=== PATIENT | female | born 1955 | race Caucasian/White ===

== ENCOUNTER 2020-05-20 19:10 | Emergency (ER) | payer OTHER, SELFPAY ==
[2020-05-20 19:18] VITALS: BP 179/77; PULSE 85; RESP 20; TEMP 37.6; O2SAT 97
--- NOTE | 2020-05-20 19:30 | ED.GENADULT ---
HPI - General Adult General Chief complaint: Dental/Oral Stated complaint: Tooth Pain Time Seen by Provider: 05/20/20 19:24 Source: patient and RN notes reviewed Mode of arrival: ambulatory Limitations: no limitations History of Present Illness HPI narrative: Patient presents today with left lower tooth pain and gum swelling since last night. States she lost a filling in this tooth several months ago and has not had it taken care of. She does have a dentist and is working to get several teeth extracted as she cannot afford them. Denies fever, shortness of breath, difficulty swallowing. She has been taking Tylenol with some relief. MD complaint: Tooth Related Data Home Medications Medication Instructions Recorded Confirmed atorvastatin 10 mg PO DAILY 05/20/20 05/20/20 carvedilol 6.25 mg PO BID 05/20/20 05/20/20 ipratropium bromide 2 spray INTRANASAL BID 05/20/20 05/20/20 levothyroxine 112 mcg PO DAILY 05/20/20 05/20/20 lisinopril 10 mg PO DAILY 05/20/20 05/20/20 rivaroxaban [Xarelto] 20 mg PO DAILY 05/20/20 05/20/20 triamcinolone acetonide 1 applic TOPICAL BID 05/20/20 05/20/20 Allergies Allergy/AdvReac Type Severity Reaction Status Date / Time No Known Allergies Allergy Verified 05/20/20 19:27 Review of Systems Review of Systems: Narrative: CONSTITUTIONAL: Denies body aches, fever, chills, or sweats. EYES: Denies visual changes, redness, or discharge. ENT: Denies rhinorrhea, congestion, sore throat, or otalgia.+ Tooth pain CARDIOVASCULAR: Denies chest pain, palpitations, or edema. RESPIRATORY: Denies cough or dyspnea. GASTROINTESTINAL: Denies abdominal pain, nausea, vomiting, or diarrhea. GENITOURINARY: Denies dysuria or hematuria. SKIN: Denies rash, itching, or wounds. MUSCULOSKELETAL: Denies back pain, joint pain, or myalgia. NEUROLOGIC: Denies headache, numbness, tingling, or weakness. PSYCH: Denies depression or anxiety. [facility] Past Medical History Medical History (Updated 05/20/20 @ 19:35 by Neha Madrigal, [employer], BC) A-fib Graves disease Hyperlipidemia Hypertension Hypothyroidism Social History Social History Alcohol intake: current Comments At time of signature, I have reviewed and agree with nursing past medical, surgical, social and family history unless otherwise noted. Please see nursing chart for further information. There is no relevant family history pertinent to the presenting complaint Exam Narrative: Exam Narrative: GENERAL: Well-appearing, well-nourished, and in no acute distress. HEAD: Normocephalic, atraumatic. EYES: EOMI. No redness or drainage. Conjunctivae normal. ENT: Mucous membranes pink and moist. Gross dental decay. Lateral half of tooth #19 is missing. Rest of the tooth is brown/black in color. Mild swelling of the left lower jawline. No obvious periapical abscess noted. Tooth #20 is dark in color as well. Throat normal. Uvula midline. NECK: Normal AROM. Supple. No lymphadenopathy. CHEST: No respiratory distress. EXTREMITIES: Normal range of motion. No edema. SKIN: Warm, dry, no rash. Capillary refill normal. Normal skin turgor. NEURO: No focal deficits. Alert and oriented x3. Gait steady. PSYCH: Normal affect. No signs of depression or anxiety. Course Vital Signs Vital signs: Vital Signs Temperature 99.7 F H 05/20/20 19:18 Pulse Rate 85 05/20/20 19:18 Respiratory Rate 05/20/20 19:18 Blood Pressure 179/77 H 05/20/20 19:18 Pulse Oximetry 97 05/20/20 19:18 Temperature 99.7 F H 05/20/20 19:18 Pulse Rate 85 05/20/20 19:18 Respiratory Rate 05/20/20 19:18 Blood Pressure 179/77 H 05/20/20 19:18 Pulse Oximetry 97 05/20/20 19:18 Reviewed. Pt has been instructed to follow up with her PCP regarding her elevated blood pressure today. Medical Decision Making Differential Diagnosis Differential Diagnosis: Dental abscess, infected dental caries Vital Signs Vital Signs: Vital Signs Temperature 99.7 F H
== END 2020-05-20 19:36 | disposition home or self-care (01) ==
PROVIDERS: Emergency Provider Nurse Practitioner; PCP Emergency Medicine
DX: K04.7 Periapical abscess without sinus (principal); I48.91 Unspecified atrial fibrillation; E78.5 Hyperlipidemia, unspecified; I10 Essential (primary) hypertension; E03.9 Hypothyroidism, unspecified; E05.00 Thyrotoxicosis with diffuse goiter without thyrotoxic crisis or storm
CPT/HCPCS: 99203; G0463

== ENCOUNTER 2020-08-06 09:21 | Emergency (ER) | payer OTHER, SELFPAY ==
[2020-08-06 09:32] VITALS: BP 172/73; PULSE 68; RESP 20; TEMP 37.4; O2SAT 98
--- NOTE | 2020-08-06 09:56 | ED.DENTAL ---
HPI - Dental/Oral General Chief complaint: Dental/Oral Stated complaint: Dental/Oral Time Seen by Provider: 08/06/20 09:40 Source: patient and RN notes reviewed Mode of arrival: ambulatory Limitations: no limitations History of Present Illness HPI Narrative: 64-year-old female who presents to express care with complaints of pain to her left lower molar area with redness and swelling to her gums around #18 tooth. Patient states that she also has some swelling to her left lower jaw, but denies any difficulty with swallowing or with her breathing. Patient was seen in clinic in April for toothache of same tooth and was treated with Amoxicillin which did help. Patient states that she had planned to wait till after holiday to have tooth pulled but she states that she plans to call her dentist in the morning. MD Complaint: tooth pain Location: Tooth # (18) Onset (ago): day(s) (1) Duration: constant Severity: moderate Severity scale (1-10): 4 Exacerbating factors: chewing Context: history of dental caries Associated symptoms: gum swelling and other (swelling left face) Treatment prior to arrival: none Related Data Home Medications Medication Instructions Recorded Confirmed atorvastatin 10 mg PO DAILY 05/20/20 08/06/20 carvedilol 6.25 mg PO BID 05/20/20 08/06/20 ipratropium bromide 2 spray INTRANASAL BID 05/20/20 08/06/20 levothyroxine 112 mcg PO DAILY 05/20/20 08/06/20 lisinopril 10 mg PO DAILY 05/20/20 08/06/20 rivaroxaban [Xarelto] 20 mg PO DAILY 05/20/20 08/06/20 triamcinolone acetonide 1 applic TOPICAL BID 05/20/20 08/06/20 Allergies Allergy/AdvReac Type Severity Reaction Status Date / Time No Known Allergies Allergy Verified 08/06/20 09:41 Review of Systems Review of Systems: Narrative: CONSTITUTIONAL: Denies fever, chills, or sweats. EYES: Denies visual changes, redness, or discharge. ENT: Denies rhinorrhea, congestion, sore throat, or otalgia,Positive for swelling and redness to gums around left lower molar which is decayed dark and broken. some swelling to left jaw near tooth area.no difficulty with swallowing or breathing. CARDIOVASCULAR: Denies chest pain, palpitations, or edema. RESPIRATORY: Denies cough or dyspnea. GASTROINTESTINAL: Denies abdominal pain, nausea, vomiting, or diarrhea. GENITOURINARY: Denies dysuria or hematuria. SKIN: Denies rash or itching. MUSCULOSKELETAL: Denies back pain, joint pain, or myalgia. NEUROLOGIC: Denies headache, numbness, or weakness. PSYCHIATRIC: Denies anxiety or depression. All systems reviewed & are unremarkable except as noted in HPI and below PMFSH Past Medical History Medical History (Updated 08/06/20 @ 10:55 by Su Narvaez NP) A-fib Graves disease had radiation therapy to thyroid Hyperlipidemia Hypertension Hypothyroidism Surgical History Surgical History (Updated 08/06/20 @ 10:55 by Su Narvaez NP) H/O tubal ligation Social History Social History (Updated 08/06/20 @ 10:44 by Su Narvaez NP) Smoking status: Former smoker Smoking end date: 08/25/14 Alcohol intake: current Substance use: never Living arrangements: with family Gender identity (if verbalized by the patient): Female Comments At time of signature, agree with nursing past medical, surgical, social history. There is no relevant family history pertinent to the presenting complaint Exam Narrative: Exam Narrative: GENERAL: Well-appearing, well-nourished, and in mild distress. HEAD: Normocephalic, atraumatic. EYES: PERRLA and EOMI. ENT: Nares clear, no rhinorrhea or epistaxis. Mucous membranes moist.TM's normal with good light reflex, throat pink with no swelling or exudates. swelling around gum with redness left lower #18 tooth with decay noted with tooth broken, no difficulty with swallowing voiced with No Carter angina,mild swelling to the left lower jaw. NECK: Supple.no lymphadenopathy CHEST: Clear to auscultation. No respiratory distress.SAO2 98% on room air
== END 2020-08-06 10:15 | disposition home or self-care (01) ==
PROVIDERS: Emergency Provider Registered Nurse; PCP Emergency Medicine
DX: K04.7 Periapical abscess without sinus (principal); Z87.891 Personal history of nicotine dependence; I48.91 Unspecified atrial fibrillation; E78.5 Hyperlipidemia, unspecified; I10 Essential (primary) hypertension; E03.9 Hypothyroidism, unspecified
CPT/HCPCS: 99213; G0463

== ENCOUNTER 2022-06-30 10:26 | Emergency (ER) | payer MEDICARE, OTHER, SELFPAY ==
[2022-06-30 10:50] VITALS: BP 154/67; PULSE 97; RESP 20; TEMP 37.5; O2SAT 97
--- NOTE | 2022-06-30 12:17 | ED.GENADULT ---
HPI - General Adult General Chief complaint: Upper Respiratory Infection Stated complaint: Sinus Congestion Source: patient Mode of arrival: ambulatory Limitations: no limitations History of Present Illness HPI narrative: Patient presents for evaluation of sinus pain, pressure, and mucopurulent discharge for last 4-5 days. No fever, chills, nausea, vomiting, or respiratory symptoms. She does have a ?scratchy throat?. 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 She took a home COVID test which was negative. She is a former smoker. She has been COVID vaccinated. She has not taken any medications to assist with her symptoms. No additional complaints or concerns. Related Data Home Medications Medication Instructions Recorded Confirmed atorvastatin 10 mg tablet 10 mg PO DAILY 05/20/20 06/30/22 carvedilol 6.25 mg tablet 6.25 mg PO BID 05/20/20 06/30/22 ipratropium bromide 21 mcg (0.03 2 spray intranasal BID 05/20/20 06/30/22 %) nasal spray levothyroxine 112 mcg capsule 112 mcg PO DAILY 05/20/20 06/30/22 lisinopril 10 mg tablet 10 mg PO DAILY 05/20/20 06/30/22 rivaroxaban 20 mg tablet (Xarelto) 20 mg PO DAILY 05/20/20 06/30/22 Allergies Allergy/AdvReac Type Severity Reaction Status Date / Time No Known Allergies Allergy Verified 06/30/22 11:17 Review of Systems Review of Systems: CONSTITUTIONAL: Denies fever, chills, or sweats. EYES: Denies visual changes, redness, or discharge. ENT: Reports sinus pain, pressure, and nuchal purulent discharge from the nares. Reports scratchy throat. Denies otalgia. CARDIOVASCULAR: Denies chest pain, palpitations, or edema. RESPIRATORY: Denies cough or dyspnea. GASTROINTESTINAL: Denies abdominal pain, nausea, vomiting, or diarrhea. GENITOURINARY: Denies dysuria or hematuria. SKIN: Denies rash or itching. MUSCULOSKELETAL: Denies back pain, joint pain, or myalgia. NEUROLOGIC: Denies headache, numbness, dizziness, or weakness. PSYCHIATRIC: Denies anxiety or depression. [facility] Past Medical History Medical History A-fib Graves disease had radiation therapy to thyroid Hyperlipidemia Hypertension Hypothyroidism Surgical History Surgical History (Reviewed 06/30/22 @ 12:19 by Zuhair Nieves [facility], ) H/O tubal ligation Family History Family History (Updated 06/30/22 @ 12:19 by Zuhair Nieves [facility], ) Mother Family history non-contributory Social History Social History (Updated 06/30/22 @ 12:19 by Zuhair Nieves [facility], ) Smoking status: Former smoker Smoking end date: 08/25/14 Alcohol intake: current Substance use: never Gender identity (if verbalized by the patient): Female Spiritual care concerns: No Exam Narrative: GENERAL: Well-appearing, well-nourished, and in no acute distress. HEAD: Normocephalic, atraumatic. EYES: PERRLA and EOMI. ENT: Bilateral maxillary sinus tenderness. There is a mucopurulent discharge in bilateral nares. Mucous membranes moist. Oropharynx without tonsillar hypertrophy exudate or other lesions. Bilateral TMs pearly orellana nonbulging NECK: Supple. No adenopathy or masses. No carotid bruits or JVD CHEST: Clear to auscultation. No respiratory distress. No wheezes rales or rhonchi HEART: Regular rate and rhythm. No murmur heard. Normal peripheral pulses. ABDOMEN: Soft, nontender, nondistended, normal active bowel sounds. EXTREMITIES: Normal range of motion. No edema. SKIN: Warm, dry, no rash. NEURO: No focal deficits. Alert and oriented x3. PSYCH: Normal mood and affect. Course Course Emergency Course: This is a 66-year-old female who presented for evaluation of sinus symptoms. She meets criteria for ABRS based on the nature of discharge. Will treat with Augmentin. Follow up outpatient for further evaluation and treatment go to the ER for worsening symptoms. Patient in agreement with plan of care. Level of
== END 2022-06-30 12:18 | disposition home or self-care (01) ==
PROVIDERS: Emergency Provider Nurse Practitioner; PCP Physician Assistant Medical
DX: J01.90 Acute sinusitis, unspecified (principal); B96.89 Other specified bacterial agents as the cause of diseases classified elsewhere; I48.91 Unspecified atrial fibrillation; E78.5 Hyperlipidemia, unspecified; I10 Essential (primary) hypertension; E03.9 Hypothyroidism, unspecified; Z87.891 Personal history of nicotine dependence
CPT/HCPCS: 87081; 87880; 99213; G0463